=== PATIENT | male | born 1965 | race Caucasian/White ===

== ENCOUNTER 2021-10-15 15:02 | Emergency (ER) | payer SELFPAY | END 2021-10-15 23:52 | LOC: JP.ED 15:02 | DX: R45.851 Suicidal ideations (principal); F32.A Depression, unspecified; Z20.822 Contact with and (suspected) exposure to COVID-19 | CPT/HCPCS: 36415; 80048; 80143; 80179; 80305-QW; 80307; 81001; 85025; 99285; U0002 ==